=== PATIENT | male | born 1950 | race African-American/Black ===

== ENCOUNTER → 2022-02-12 | Day surgery (SDC) | payer MEDICARE, OTHER ==
[~2022-02-12] VITALS: Ht 170.2 cm; Wt 80.0 kg
[~2022-02-12] MED LIST: ASPIRIN EC81 MG PO; CARDURA2 MG PO; COREG25 MG PO; EMLA CREAM5 GM TOP; HYDRALAZINE25 MG PO; LIPITOR20 MG PO; NAMENDA 10MG TA10 MG PO; NORVASC5 MG PO; PHOSLO667 MG PO; PRILOSEC20 MG PO; PRINIVIL10 MG PO; RENAGEL800 MG PO; TIROSINT88 MCG PO; ZOLOFT100 MG PO
[2022-02-12 07:25] LABS: BASOPHIL 0.7 % (0-2); EOSINOPHIL 17.4 % (0-7); HCT 33.2 % (42.0-52.0); HGB 10.5 g/dl (13.2-18.0); LYMPHOCYTE 23.2 % (15-48); MCH 31.7 pg (25.0-31.0); MCHC 31.6 g/dL (32.0-36.0); MCV 100.3 fL (78.0-100.0); MONOCYTE 12.9 % (0-12); MPV 8.6 fL (6.0-9.5); NEUTROPHIL 44.8 % (41-80); NRBC 0; PLT 248 K/uL (150-400); RBC 3.31 M/uL (4.70-6.00); RDW 15.1 % (11.5-14.0); WBC 7.4 K/uL (4.0-10.5)
[2022-02-12 07:34] LABS: INR 0.97 (0.9-1.2); PROTHROMBIN TIME 12.6 SECONDS (11.9-13.9); PTT 25.1 SECONDS (24.9-34.6)
[2022-02-12 07:59] LABS: ALBUMIN 3.6 g/dL (3.4-5.0); BILIRUBIN - TOTAL 0.3 mg/dL (0.2-1.0); BUN/CREAT RATIO (CALC) 2.9 RATIO; CREATININE 8.51 mg/dL (0.67-1.17); GLOBULIN (CALCULATION) 3.9 g/dL; POTASSIUM 3.7 mmol/L (3.5-5.1); TOTAL PROTEIN 7.5 g/dL (6.4-8.2)
== END | disposition home or self-care (01) ==
LOC: FAS 06:39
PROVIDERS: Oral & Maxillofacial Surgery
DX: K02.9 Dental caries, unspecified (principal); K04.7 Periapical abscess without sinus; I12.9 Hypertensive chronic kidney disease with stage 1 through stage 4 chronic kidney disease, or unspecified chronic kidney disease; E11.22 Type 2 diabetes mellitus with diabetic chronic kidney disease; N18.9 Chronic kidney disease, unspecified; E78.5 Hyperlipidemia, unspecified; F03.90 Unspecified dementia, unspecified severity, without behavioral disturbance, psychotic disturbance, mood disturbance, and anxiety; K21.9 Gastro-esophageal reflux disease without esophagitis; Z79.82 Long term (current) use of aspirin; Z79.899 Other long term (current) drug therapy
CPT/HCPCS: D7140; D7210; 36415; 71045; 80053; 85025; 85610; 85730; 93005; J1100; J2250; J2405; J2704; J3010; J7030